=== PATIENT | male | born 1955 | race Caucasian/White ===

== ENCOUNTER 2024-01-10 08:50 | Day surgery (SDC) | payer OTHER ==
[~2024-01-10] VITALS: Ht 177.8 cm; Wt 117.0 kg
[~2024-01-10 08:50] MED LIST: APAP325T4 PO; ASPI81TA26 PO; B-122500 PO; BENA25CA4 PO; CARV3.12 PO; CETI5TAB2 PO; COQ150CH PO; FAMO1TAB11 PO; LISI5TAB11 PO; NITR0.4S14 SL; NS 1,000 ML IV ONE; QC F0.52 PO; ROSU5TAB40 PO; THERTAB52 PO; VITA100093 PO; propofoL 200 MG/20 ML VIAL As Ordered ONE
[2024-01-10] MEDS ORDERED: ATROPINE SULF 0.4 MG/ML 1ML VIAL As Ordered ONE (10:26)
[2024-01-10 10:41] VITALS: TEMP 97.1
[2024-01-10 10:57] VITALS: BP 104/55; O2SAT 97
== END 2024-01-10 11:15 | disposition home or self-care (01) ==
LOC: M OPP 08:50
PROVIDERS: ATTEND Internal Medicine Gastroenterology
DX: Z12.11 Encounter for screening for malignant neoplasm of colon (principal); D12.6 Benign neoplasm of colon, unspecified; K64.0 First degree hemorrhoids; K57.30 Diverticulosis of large intestine without perforation or abscess without bleeding; K44.9 Diaphragmatic hernia without obstruction or gangrene; K21.00 Gastro-esophageal reflux disease with esophagitis, without bleeding; R12 Heartburn; I25.119 Atherosclerotic heart disease of native coronary artery with unspecified angina pectoris; Z86.74 Personal history of sudden cardiac arrest; Z95.5 Presence of coronary angioplasty implant and graft; Z79.82 Long term (current) use of aspirin; Z79.899 Other long term (current) drug therapy; Z88.8 Allergy status to other drugs, medicaments and biological substances
CPT/HCPCS: 43239; 45385; 88305; J0461